=== PATIENT | female | born 1945 | race Caucasian/White ===

== ENCOUNTER 2017-09-22 22:59 | Emergency (ER) | payer OTHER ==
[~2017-09-22] VITALS: Ht 157.5 cm; Wt 48.5 kg
[2017-09-22 23:54] LABS: Urine RBC None Seen /hpf (0 - 4)
[2017-09-23 00:07] LABS: Urine Bilirubin Negative (Negative); Urine Blood Negative /uL (Negative); Urine Color Yellow (Yellow); Urine Glucose Normal (Normal); Urine Ketone Negative (Negative); Urine Nitrite Negative (Negative); Urine Squamous Epithelial Cell FEW /hpf (<5); Urine Urobilinogen Normal (Negative)
[2017-09-23 01:36] LABS: Basophils # (auto) 0.1 uL; Basophils % (auto) 0.9 % (0.0-2.0); Eosinophils # (auto) 0.2 uL; Mean Platelet Volume 8.6 fL (6.9-10.8); Nucleated Red Blood Cells % 0.1 %; White Blood Cell 9.7 10^3/uL (4.4-10.8)
[2017-09-23 01:37] LABS: Eosinophils % (auto) 2.5 % (0.0-7.0); Hematocrit 44.7 % (36.0-46.0); Hemoglobin 15.3 g/dL (12.2-16.2); Lymphocytes # (auto) 2.6 uL; Lymphocytes % (auto) 26.8 % (10.0-50.0); Mean Corpuscular Hgb Conc. 34.1 g/dL (32.0-36.0); Mean Corpuscular Volume 99.8 fL (80.0-100.0); Monocytes % (auto) 10.7 % (0.0-12.0); Neutrophils # (auto) 5.7 uL; Neutrophils % (auto) 59.1 % (37.0-80.0); Platelet Count (auto) 252 10^3/uL (140-450); Red Cell Distribution Width 13.8 % (11.8-14.3)
[2017-09-23 01:50] LABS: INR 0.94 (0.9-1.15); Partial Thromboplastin Time 27.8 sec (22.64-33.71); Prothrombin Time 10.2 sec (9.37-12.3)
[2017-09-23 01:54] LABS: Albumin 3.7 g/dL (3.4-5.0); Amylase 34 U/L (25-115); Anion Gap 10 (5-15); Blood Urea Nitrogen 6 mg/dL (7-18); Carbon Dioxide 24 mmol/L (21-32); Chloride 104 mmol/L (98-107); GFR African American 84 mL/min; GFR Non-African American 69 mL/min; Glucose 99 mg/dL (74-106); Sodium 138 mmol/L (136-145)
[2017-09-23 02:00] LABS: Alkaline Phosphatase 94 U/L (45-117); Aspartate Aminotransferase 44 U/L (15-37); Bilirubin, Total 0.3 mg/dL (0.2-1.0); Total Protein 7.5 g/dL (6.4-8.2)
[2017-09-23] MEDS ORDERED: SODIUM CHLORIDE 0.9% 500 ML IV ONE (02:54)
[2017-09-23] MEDS ORDERED: ACETAMINOPHEN/CODEINE#3 (300/30mg) TAB PO ONE (04:00)
[2017-09-23 05:24] VITALS: BP 156/88
== END 2017-09-23 05:38 | disposition home or self-care (01) ==
LOC: ER 23:01
DX: K57.90 Diverticulosis of intestine, part unspecified, without perforation or abscess without bleeding (principal)
CPT/HCPCS: 36415; 74176; 80053; 81001; 82150; 83690; 84484; 85025; 85610; 85730; 96360; 96361; 99285; J7030

== ENCOUNTER 2017-11-12 06:01 | Inpatient (IN) | payer OTHER ==
[~2017-11-12] VITALS: Ht 152.4 cm; Wt 50.7 kg
[2017-11-12] MEDS ORDERED: ALBUTEROL SULF 2.5 MG/0.5ML(0.5%) NEB SOLN NEB ONE (06:30)
[2017-11-12] MEDS ORDERED: IPRATROPIUM BROM 0.5 MG/2.5ML INH SOL NEB ONE (06:30)
[2017-11-12 07:24] LABS: Basophils # (auto) 0 uL; Basophils % (auto) 0.4 % (0.0-2.0); Eosinophils # (auto) 0 uL; Hematocrit 41.5 % (36.0-46.0); Hemoglobin 14.3 g/dL (12.2-16.2); Lymphocytes # (auto) 0.2 uL; Lymphocytes % (auto) 1.9 % (10.0-50.0); Mean Corpuscular Hemoglobin 33.8 pg (28.0-32.0); Mean Corpuscular Hgb Conc. 34.4 g/dL (32.0-36.0); Mean Corpuscular Volume 98.1 fL (80.0-100.0); Monocytes # (auto) 0.8 uL; Monocytes % (auto) 9.2 % (0.0-12.0); Neutrophils # (auto) 7.3 uL; Neutrophils % (auto) 88.5 % (37.0-80.0); Platelet Count (auto) 284 10^3/uL (140-450); Red Blood Cells 4.23 10^6/uL (4.0-5.20); Red Cell Distribution Width 12.8 % (11.8-14.3); White Blood Cell 8.3 10^3/uL (4.4-10.8)
[2017-11-12 07:45] LABS: Albumin 3.6 g/dL (3.4-5.0); BUN/Creatinine Ratio 9.3; Bilirubin, Total 0.3 mg/dL (0.2-1.0); Calcium 8.7 mg/dL (8.5-10.1); Potassium 3.5 mmol/L (3.5-5.1); Total Protein 7.3 g/dL (6.4-8.2)
[2017-11-12] MEDS ORDERED: cefTRIAXone W LIDOCAINE 1 GM IM IM ONE (09:15)
[2017-11-12] MEDS ORDERED: FUROSEMIDE 40 MG TAB PO ONE (09:15)
[2017-11-12] MEDS ORDERED: DEXTROSE (50%) 50ML SYRG IV PRN (12:30)
[2017-11-12] MEDS ORDERED: PROMETHAZINE HCL 25 MG/ML 1ML IV PRN (12:30)
[2017-11-12] MEDS ORDERED: NITROGLYCERIN 0.4 MG SL TAB SL PRN (12:30)
[2017-11-12] MEDS ORDERED: ALBUTEROL SULF 2.5 MG/0.5ML(0.5%) NEB SOLN NEB PRN (12:30)
[2017-11-12] MEDS ORDERED: LORazepam 0.5 MG TAB PO PRN (12:30)
[2017-11-12] MEDS ORDERED: TEMAZEPAM 15 MG CAP PO PRN (12:30)
[2017-11-12] MEDS ORDERED: MORPHINE SULFATE 4 MG/ML SYR/VIAL IV PRN ×2 (12:30)
[2017-11-12] MEDS ORDERED: LACTULOSE 20Gm/30ML SOLN PO PRN (12:30)
[2017-11-12] MEDS ORDERED: OSELTAMIVIR 75 MG CAP PO ONE (12:30)
[2017-11-12] MEDS ORDERED: MORPHINE SULF INJ 2 MG/ML SYRINGE 1ML IV PRN (12:30)
[2017-11-12] MEDS: SODIUM CHLOR 0.9% PF (SALINE LOCK) 10ML VIAL IV SCH ×2 (12:46→22:04)
[2017-11-12] MEDS: methylPREDNISolone SOD SUCC 40 MG/ML VL IV SCH (12:52)
[2017-11-12] MEDS: DOXYCYCLINE HYC 100MG/250ML 250 ML IV SCH (12:52)
[2017-11-12] MEDS: ENOXAPARIN SOD 40 MG/0.4 ML SYRINGE SC SCH (12:52)
[2017-11-12] MEDS: InsuLIN REG 1unit/0.01ml Soln (100units/ml) SC SCH ×2 (17:00→22:05)
[2017-11-12] MEDS: ACCU-CHEK COMFORT CURVE STRIP VI SCH ×2 (17:01→22:05)
[2017-11-12] MEDS ORDERED: LEV50T PO (19:05)
[2017-11-12] MEDS: IPRATROPIUM BROM 0.5 MG/2.5ML INH SOL NEB SCH (19:56)
[2017-11-12] MEDS: ALBUTEROL SULF 2.5 MG/0.5ML(0.5%) NEB SOLN NEB SCH (19:57)
[2017-11-12] MEDS ORDERED: OSELTAMIVIR 75 MG CAP PO SCH (22:00)
[2017-11-12] MEDS: FAMOTIDINE 20 MG TAB PO SCH (22:04)
[2017-11-12 23:38] VITALS: BP 97/53
[2017-11-13] VITALS (7 sets, daily range): BP systolic 97–126; BP diastolic 51–71
[2017-11-13] MEDS: DOXYCYCLINE HYC 100MG/250ML 250 ML IV SCH ×2 (00:29→12:12)
[2017-11-13] MEDS: methylPREDNISolone SOD SUCC 40 MG/ML VL IV SCH ×2 (00:29→12:11)
[2017-11-13] MEDS: ALBUTEROL SULF 2.5 MG/0.5ML(0.5%) NEB SOLN NEB SCH ×4 (00:57→19:27)
[2017-11-13] MEDS: IPRATROPIUM BROM 0.5 MG/2.5ML INH SOL NEB SCH ×4 (00:57→19:26)
[2017-11-13] MEDS: ACCU-CHEK COMFORT CURVE STRIP VI SCH ×4 (06:52→22:11)
[2017-11-13] MEDS: SODIUM CHLOR 0.9% PF (SALINE LOCK) 10ML VIAL IV SCH ×3 (06:52→22:04)
[2017-11-13] MEDS: InsuLIN REG 1unit/0.01ml Soln (100units/ml) SC SCH ×4 (06:52→22:22)
[2017-11-13 06:53] LABS: Albumin 3.2 g/dL (3.4-5.0); BUN/Creatinine Ratio 24.1; Bilirubin, Total 0.2 mg/dL (0.2-1.0); Calcium 8.7 mg/dL (8.5-10.1); Potassium 3.6 mmol/L (3.5-5.1); Total Protein 6.9 g/dL (6.4-8.2)
[2017-11-13] MEDS: FAMOTIDINE 20 MG TAB PO SCH ×2 (09:25→22:08)
[2017-11-13] MEDS: ENOXAPARIN SOD 40 MG/0.4 ML SYRINGE SC SCH (09:26)
[2017-11-13] MEDS: PROMETHAZINE W/CODEINE 5 ML ORAL SYRUP PO PRN ×3 (12:12→22:27)
[2017-11-13 15:19] LABS: Urine Bacteria NONE SEEN /hpf (None Seen); Urine Blood Negative /uL (Negative); Urine Specific Gravity 1.006 (1.001-1.035); Urine WBC <1 /hpf (0 - 5)
[2017-11-13] MEDS: ACETAMINOPHEN 325 MG TAB PO PRN ×2 (16:16→22:26)
[2017-11-13] MEDS ORDERED: ATORVASTATIN 20 MG TAB PO SCH (22:00)
[2017-11-13] MEDS: FLUTICASONE PROP NASAL SPR 0.05 % (50MCG) 16GM EACHNOSTRI SCH (22:04)
[2017-11-14] MEDS: methylPREDNISolone SOD SUCC 40 MG/ML VL IV SCH ×2 (00:31→12:36)
[2017-11-14] MEDS: DOXYCYCLINE HYC 100MG/250ML 250 ML IV SCH ×2 (00:32→12:36)
[2017-11-14] MEDS: ALBUTEROL SULF 2.5 MG/0.5ML(0.5%) NEB SOLN NEB SCH ×3 (00:33→12:23)
[2017-11-14] MEDS: IPRATROPIUM BROM 0.5 MG/2.5ML INH SOL NEB SCH ×3 (00:33→12:23)
[2017-11-14] MEDS: ACETYLCYSTEINE 10 %(100MG/ML) SOL 4ML NEB SCH ×2 (00:33→07:22)
[2017-11-14 05:14] VITALS: BP 109/62
[2017-11-14] MEDS: SODIUM CHLOR 0.9% PF (SALINE LOCK) 10ML VIAL IV SCH (05:53)
[2017-11-14] MEDS: InsuLIN REG 1unit/0.01ml Soln (100units/ml) SC SCH ×2 (06:51→12:38)
[2017-11-14] MEDS: ACCU-CHEK COMFORT CURVE STRIP VI SCH ×2 (06:51→12:35)
[2017-11-14 07:30] VITALS: BP 130/73
[2017-11-14] MEDS: PROMETHAZINE W/CODEINE 5 ML ORAL SYRUP PO PRN (07:47)
[2017-11-14 09:00] VITALS: BP 130/73
[2017-11-14] MEDS: FLUTICASONE PROP NASAL SPR 0.05 % (50MCG) 16GM EACHNOSTRI SCH (09:42)
[2017-11-14] MEDS: FAMOTIDINE 20 MG TAB PO SCH (09:42)
[2017-11-14] MEDS: ACETAMINOPHEN 325 MG TAB PO PRN ×2 (09:43→16:16)
[2017-11-14] MEDS: ENOXAPARIN SOD 40 MG/0.4 ML SYRINGE SC SCH (09:44)
[2017-11-14 13:00] VITALS: BP 108/70
[2017-11-14] MEDS ORDERED: AMOX250C3 PO (14:23)
[2017-11-14] MEDS ORDERED: METH4PAK PO (14:23)
[2017-11-14] MEDS ORDERED: FLUT1SPR5 (14:23)
[2017-11-14] MEDS ORDERED: IPRAAER6 IN (14:23)
[2017-11-14] MEDS ORDERED: ATOR20TA50 PO (14:23)
[2017-11-14 15:56] VITALS: BP 114/67
[2017-11-14 17:28] VITALS: BP 137/82
[2017-11-15 09:34] LABS: Hepatitis B Surface Antibody Negative
[2017-11-15 09:44] LABS: Hepatitis B Surface Antigen Negative (Negative)
[2017-11-15 10:12] LABS: Hepatitis A Total Antibody Negative; Hepatitis C Antibody Negative (Negative)
[2017-11-15 10:13] LABS: Hepatitis B Core Total AB Negative
== END 2017-11-14 17:50 | disposition home or self-care (01) | DRG 191 ==
LOC: ER 06:01 → EDBD 06:01 → TELE 06:02 → TELE-CENTR 20:33
PROVIDERS: ADMIT Internal Medicine; ATTEND Internal Medicine
DX: J44.0 Chronic obstructive pulmonary disease with (acute) lower respiratory infection (principal); E87.1 Hypo-osmolality and hyponatremia; I50.9 Heart failure, unspecified; J44.1 Chronic obstructive pulmonary disease with (acute) exacerbation; E03.9 Hypothyroidism, unspecified; R73.9 Hyperglycemia, unspecified; Z90.710 Acquired absence of both cervix and uterus; J20.9 Acute bronchitis, unspecified
CPT/HCPCS: 36415; 70450; 71045; 76705; 80053; 80061; 81001; 82550; 82962; 83036; 83880; 84443; 84484; 85025; 85652; 86704; 86706; 86708; 86803; 87070; 87205; 87340; 87400; 93005; 93306; 94640; 96365; 96366; 96372; 96375; 97163; J0696; J1815; J3490

== ENCOUNTER 2021-10-13 12:02 | Emergency (ER) | payer OTHER ==
[~2021-10-13] VITALS: Ht 157.5 cm; Wt 63.5 kg
[~2021-10-13 12:02] MED LIST: AMOX250C3 PO; ATOR20TA50 PO; FLUT1SPR5; IPRAAER6 IN; LEV50T PO; METH4PAK PO
[2021-10-13 12:46] VITALS: BP 120/72
[2021-10-13 13:24] LABS: Basophils # (auto) 0 10 ^3/uL (0-0.2); Basophils % (auto) 0.5 % (0.0-2.0); Eosinophils # (auto) 0 10 ^3/uL (0-0.8); Hematocrit 45.8 % (36.0-46.0); Lymphocytes # (auto) 0.5 10 ^3/uL (0.4-5.4); Lymphocytes % (auto) 13.7 % (10.0-50.0); Mean Corpuscular Hemoglobin 30.2 pg (28.0-32.0); Mean Corpuscular Hgb Conc. 32.9 g/dL (32.0-36.0); Monocytes # (auto) 0.4 10 ^3/uL (0-1.3); Monocytes % (auto) 12.2 % (0.0-12.0); Neutrophils # (auto) 2.6 10 ^3/uL (1.6-8.6); Neutrophils % (auto) 73.6 % (37.0-80.0); Nucleated Red Blood Cells % 0.4 %; Red Blood Cells 4.98 10^6/uL (4.0-5.20); Red Cell Distribution Width 14.1 % (11.8-14.3); White Blood Cell 3.5 10^3/uL (4.4-10.8)
[2021-10-13 14:07] LABS: Albumin 3.5 g/dL (3.4-5.0); Calcium 8.5 mg/dL (8.5-10.1); Magnesium 2.1 mg/dL (1.6-2.6); Potassium 4.1 mmol/L (3.5-5.1)
[2021-10-13 14:11] LABS: BUN/Creatinine Ratio 15.7; Bilirubin, Total 0.3 mg/dL (0.2-1.0); Total Protein 7.8 g/dL (6.4-8.2)
[2021-10-13] MEDS ORDERED: NITROGLYCERIN 0.4 MG SL TAB SL PRN (16:15)
[2021-10-13] MEDS ORDERED: HYDROcodone-ACET 5/325MG TAB PO PRN (16:15)
[2021-10-13] MEDS ORDERED: MORPHINE SULFATE INJECTION 2 MG/ML SYRG IV PRN (16:15)
[2021-10-13] MEDS ORDERED: ONDANSETRON HCL 4 MG/2 ML VIAL IV PRN (16:15)
[2021-10-13] MEDS ORDERED: ACETAMINOPHEN 325 MG TAB PO PRN (16:15)
[2021-10-13] MEDS ORDERED: cefTRIAXone 1GM/50ML D5W 50 ML IV SCH (16:30)
[2021-10-13] MEDS ORDERED: AZITHROMYCIN 500MG/ 250ML 250 ML IV SCH (18:00)
[2021-10-13] MEDS ORDERED: ASCORBIC ACID 500 MG TAB PO SCH (22:00)
[2021-10-14] MEDS ORDERED: CHOLECALCIFEROL (VITD3) 2,000 UNIT CAP/TAB PO SCH (10:00)
[2021-10-14] MEDS ORDERED: DexAMETHasone SOD PHOS 10MG/1ML VIAL INJ IV SCH (10:00)
[2021-10-14] MEDS ORDERED: ENOXAPARIN SOD 40 MG/0.4 ML SYRINGE SC SCH ×2 (10:00)
[2021-10-14] MEDS ORDERED: ZINC SULFATE 220mg CAP or TAB PO SCH (10:00)
== END 2021-10-13 19:57 | disposition left against medical advice (07) ==
LOC: ER 12:02
DX: U07.1 COVID-19 (principal); R07.89 Other chest pain; Z90.710 Acquired absence of both cervix and uterus
CPT/HCPCS: 36415; 71045; 80053; 83735; 84484; 85025; 85379; 87426; 93005